=== PATIENT | male | born 1970 | race American Indian/Alaskan Native ===

== ENCOUNTER 2017-12-10 16:00 | Emergency (ER) | payer BC ==
[2017-12-10 16:13] VITALS: BP 158/105; PULSE 54; RESP 20; TEMP 97.8; O2SAT 99
[2017-12-10] MEDS ORDERED: Lidocaine 1% Inj (20ml) INFIL STA (16:27)
--- NOTE | 2017-12-10 16:30 | C.PDOC ---
History Of Present Illness Patient is a 47 y/o M presenting with abscess. Patient reports that 1 week ago he developed what he thought was an insect bite to his LL back. He reports that the area was pruritic. He reports that 2 days ago he began to have discharge from the wound. Denies fever. Denies IVDA. Denies DM. Denies HIV. Time Seen by Provider: 12/10/17 16:21 Chief Complaint (Nursing): Abnormal Skin Integrity Past Medical History Vital Signs: Last Vital Signs Temp 97.8 F 12/10/17 16:10 Pulse 54 L 12/10/17 16:10 Resp 20 12/10/17 16:10 BP 158/105 H 12/10/17 16:10 Pulse Ox 99 12/10/17 16:58 Family History: States: No Known Family Hx - Social History Hx Alcohol Use: Yes Hx Substance Use: No - Immunization History Hx Tetanus Toxoid Vaccination: No Hx Influenza Vaccination: No Hx Pneumococcal Vaccination: No Review Of Systems Constitutional: Negative for: Fever, Chills Cardiovascular: Negative for: Chest Pain, Palpitations Respiratory: Negative for: Cough, Shortness of Breath, SOB with Excertion, Wheezing Gastrointestinal: Negative for: Nausea, Vomiting, Abdominal Pain, Diarrhea, Constipation Musculoskeletal: Negative for: Neck Pain Skin: Positive for: Other (abscess to L back, not midline) Neurological: Negative for: Weakness, Numbness, Incoordination Physical Exam - Physical Exam Appears: Well, Non-toxic, No Acute Distress Skin: Normal Color, Warm, Dry Head: Atraumatic, Normacephalic Eye(s): bilateral: Normal Inspection, PERRL, EOMI Neck: Normal ROM, Supple Chest: Symmetrical Cardiovascular: Rhythm Regular Respiratory: Normal Breath Sounds, No Rales, No Rhonchi Back: Other (2cm area of fluctuance to left lower back. Not midline and not close to the rectum) Extremity: Normal ROM Neurological/Psych: Oriented x3, Normal Motor Gait: Steady ED Course And Treatment O2 Sat by Pulse Oximetry: 99 Progress Note: Abscess was drained. No surrounding cellulitis or erythema. Instructed to return in 2 days for wound check - Incision & Drainage Of Abscess Anesthesia: Lidocaine 1% Prep Used: Betadine Procedure: Incised W/Scalpel Blade#: (11), Drained Pus, Probed To Break Up Loculations, Packed W/Gauze Disposition - Disposition Disposition: HOME/ ROUTINE Disposition Time: 16:57 Condition: GOOD Additional Instructions: Return to ED or PMD in 2 days for wound check. Return to ED if condition worsens. Instructions: Skin Abscess Forms: [facility] (Yakut), Work Excuse - Clinical Impression Clinical Impression: Abscess
[2017-12-10] MEDS ORDERED: Lidocaine Hydrochloride 5 ML INJ ONE (16:35)
== END 2017-12-10 17:07 | disposition home or self-care (01) ==
LOC: C.ER 16:00
DX: L02.212 Cutaneous abscess of back [any part, except buttock and flank] (principal)

== ENCOUNTER 2017-12-12 15:44 | Emergency (ER) | payer BC ==
[2017-12-12 15:48] VITALS: BP 133/86; PULSE 59; RESP 18; TEMP 98.2; O2SAT 98
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
== END 2017-12-12 16:13 | disposition home or self-care (01) ==
LOC: C.ER 15:44
DX: Z48.89 Encounter for other specified surgical aftercare (principal)